=== PATIENT | female | born 1940 | race Caucasian/White ===

== ENCOUNTER → 2017-03-24 | Outpatient (CLI) | payer MEDICARE ==
--- NOTE | 2017-03-24 15:13 | MAM ---
History: Six month follow-up probably benign calcifications right breast 7:00. DATE OF SERVICE: 03/24/2017 Services provided: Full field digital diagnostic right mammography. FINDINGS: Ame true lateral and spot compression magnification views right breast are compared with 10/2016 evaluation. Vascular calcifications are appreciated with what appeared to be potentially secretory type calcifications at 7:00 adjacent to the vessel. Morphology and appearance appear stable. These are better demonstrated since the study in 2013. Glandular parenchyma has a scattered contour. No architectural distortion or dominant mass. IMPRESSION: Probably benign exam. Stable microcalcifications right breast 7:00. Recommendation: Bilateral mammography is due in October. Routine films with magnification views are recommended at that time and was communicated to the patient by the technologist. BIRAD CATEGORY: 3 PROBABLY BENIGN Electronically signed by: Bonita Beard MD 03/24/2017 3:12 PM CDT
== END | disposition home or self-care (01) ==
LOC: MAMMO 14:05
PROVIDERS: ATTEND Family Medicine
DX: R92.8 Other abnormal and inconclusive findings on diagnostic imaging of breast (principal)

== ENCOUNTER → 2017-07-14 | Outpatient (CLI) | payer MEDICARE | END | disposition home or self-care (01) | LOC: GMAL 11:02 | PROVIDERS: ATTEND Family Medicine | DX: D51.3 Other dietary vitamin B12 deficiency anemia (principal) ==

== ENCOUNTER → 2017-10-03 | Outpatient (CLI) | payer MEDICARE ==
--- NOTE | 2017-10-04 08:54 | MAM ---
EXAM DESCRIPTION: 3D Diagnostic, Bilateral CLINICAL HISTORY: 77 yearsFemaleABNORMAL SCREENING follow-up calcifications right breast.. No current complaints. Sister with breast cancer. Postmenopausal. Has taken HRT 5 or more years ago. Bilateral breast augmentation. COMPARISON: 2-D digital bilateral screening study 09/29/2016. 2-D right breast diagnostic digital mammography 10/21/2016 and 03/24/2017. Reports from each prior examination also reviewed TECHNIQUE: Bilateral digital screening. CC and MLO projection full-field, 2-D images. Bilateral Venancio implant displacement images, CC and MLO full-field projections, 3-D tomosynthesis. CAD not utilized. FINDINGS: The breast parenchymal density pattern is: Scattered areas of fibroglandular density. No skin thickening or nipple retraction bilaterally. Again noted are multiple calcifications in the anterior third of the right breast.. There are groups of microcalcifications, as it calcifications, and solitary microcalcifications. These calcifications are stable since the study in March 2017. Fewer calcifications in the anterior lateral aspect of the left breast. Bilateral subglandular silicon implants. Partial calcification of the bilateral capsules. The capsules appear intact where seen. No focal, stellate mass or density no focal asymmetry, and no suspicious microcalcifications bilaterally IMPRESSION: BI-RADS CATEGORY: 3 - PROBABLY BENIGN. Management: Short interval (6-month) follow-up right breast digital diagnostic mammography. Written communication explaining the IMPRESSION and follow-up will be mailed to the patient and referring care provider Electronically signed by: Isaac Oliva MD 10/04/2017 8:53 AM [employer]ATING [employer]IXER [employer]ENDER
== END | disposition home or self-care (01) ==
LOC: MAMMO 12:32
PROVIDERS: ATTEND Family Medicine
DX: R92.8 Other abnormal and inconclusive findings on diagnostic imaging of breast (principal)
CPT/HCPCS: G0204; G0279

== ENCOUNTER → 2017-11-16 | Outpatient (CLI) | payer MEDICARE | END | disposition home or self-care (01) | LOC: GMAJ 10:30 | PROVIDERS: ATTEND Family Medicine | DX: R53.82 Chronic fatigue, unspecified (principal); E55.9 Vitamin D deficiency, unspecified ==

== ENCOUNTER → 2018-01-25 | Outpatient (CLI) | payer MEDICARE ==
--- NOTE | 2018-01-25 10:55 | MAM ---
EXAM DESCRIPTION: 3D Diagnostic, Right: Digital Mammography CLINICAL HISTORY: 77 yearsFemaleABNORMAL MAMMOGRAM . Six-month follow-up calcifications right breast. Patient waiting for renal transplant.. COMPARISON: Bilateral 3-D tomosynthesis diagnostic mammography 10/03/2017. Diagnostic 2-D right breast mammography 03/24/2017. Diagnostic right breast 2-D digital mammography 10/21/2016. Reports from prior examinations also reviewed. TECHNIQUE: Right breast CC LM MLO projection full-field images, 3-D tomosynthesis digital mammographic technique. Also bilateral synthesized CC MLO LM full-field images. Also 2-D MLO LM and CC images without and with implant displacement. CAD utilized for 2-D images. FINDINGS: The breast parenchymal density pattern is: Scattered areas of fibroglandular density. No skin thickening or nipple retraction again noted is a large group of heterogeneous calcifications in the posterior middle third of the right breast on the implant displacement view at the 100 clock position. These are stable compared to the prior study September 2017. Also stable dating back to 2-D diagnostic digital mammographic examination October 2016. No new focal, stellate mass or density, focal asymmetry , and no suspicious microcalcifications right breast. Stable mammograms compared to prior study, taking into account differences in mammographic technique IMPRESSION: BI-RADS CATEGORY: 3 - PROBABLY BENIGN. Management: Short interval (6-month) follow-up digital diagnostic mammography of the right breast, July 2018. The technologist discussed the FINDINGS AND IMPRESSION directly with the patient. Written communication explaining the IMPRESSION and follow-up will be mailed to the patient and referring care provider Electronically signed by: Isaac Oliva MD 01/25/2018 10:53 AM CDT
== END ==
LOC: MAMMO 10:00
PROVIDERS: ATTEND Family Medicine
DX: R92.8 Other abnormal and inconclusive findings on diagnostic imaging of breast (principal)
CPT/HCPCS: 77065; G0279

== ENCOUNTER → 2018-02-06 | Outpatient (CLI) | payer MEDICARE ==
--- NOTE | 2018-02-06 08:43 | CT ---
EXAM DESCRIPTION: Pelvis CLINICAL HISTORY: 77 years Female, ASSESS ILIAC VASCULATURE COMPARISON: None. TECHNIQUE: CT pelvis without contrast FINDINGS: Numerous cysts are seen in the kidneys which appear markedly enlarged. Calcified aorta is seen with arteriosclerotic calcification of the common iliac and internal iliac arteries. Minimal calcification of external iliac arteries with dense calcification of the common femoral arteries bilaterally. Surgical clip is seen in the right groin region. Surgical clips are seen in the groin regions bilaterally. Calcified superficial femoral arteries are visualized in the proximal thighs bilaterally. Bilateral total hip arthroplasties are present with metal artifacts obscuring much of the lower pelvis. Calcified uterine fibroid is present posteriorly on the left. No uterine or ovarian enlargement. Bladder is only partly visualized due to metal artifact obscuration. Bones appear osteopenic or osteoporotic. Coronal and sagittal reformatted images confirm the findings. Three-D shaded surface display images show total hip arthroplasties bilaterally with no hardware fracture or dislocation. IMPRESSION: Partially visualized polycystic kidneys. Calcified uterine fibroid. Arteriosclerotic calcification of aorta, iliac and femoral arteries. This exam was performed according to our departmental dose-optimization program, which includes automated exposure control, adjustment of the mA and/or kV according to patient size and/or use of iterative reconstruction technique. Total DLP equals 660.65 mGycm. Electronically signed by: Ben Florence MD 02/06/2018 8:41 AM CDT
== END ==
LOC: CT 08:30
DX: N18.6 End stage renal disease (principal); D25.9 Leiomyoma of uterus, unspecified

== ENCOUNTER → 2018-06-29 | Outpatient (CLI) | payer MEDICARE ==
--- NOTE | 2018-06-29 17:02 | MRI ---
EXAM DESCRIPTION: Lumbar Spine w/o Contrast CLINICAL HISTORY: 78 years, Female, RADICULOPATHY COMPARISON: None TECHNIQUE: Multiplanar multi sequence images of the lumbar spine were obtained without gadolinium contrast. FINDINGS: Vertebral body height and alignment are well maintained. Modic type I discogenic endplate signal changes are noted at L2-3 and L3-4. The conus lies posterior to the T12-L1 disc, and the cauda equina is unremarkable. Normal kidneys are not identified, with the majority of the volume occupied by innumerable cysts. No apparent abdominal aortic aneurysm. At L1-2, there is no disc bulging or significant facet joint degeneration. At L2-3, disc desiccation is noted with concentric disc bulging and bilateral facet joint degeneration without significant central canal or neuroforaminal stenosis. At L3-4, there is disc desiccation with concentric disc bulging, bilateral facet joint degeneration and ligament flavum thickening resulting in mild central canal and moderate left-sided neuroforaminal stenosis. Disc material approaches but only questionably abuts the exiting left L3 nerve root. At L4-5, there is disc desiccation with concentric disc bulging and bilateral facet joint degeneration resulting in mild right-sided neural foraminal stenosis. Disc material approaches but does not definitely abut the descending right L5 nerve root in the lateral recess. At L5-S1, there is only mild right foraminal and right lateral bulging with bilateral facet joint degeneration all resulting in mild right-sided neuroforaminal stenosis. Disc material approaches but only questionable area abuts the exiting right L5 nerve root. IMPRESSION: Disc bulging and facet joint degeneration at L3-4, L4-5 and L5-S1 resulting in neuroforaminal stenosis, central canal stenosis and questionable nerve root abutment as detailed above. Electronically signed by: Matteo Kamara MD 06/29/2018 4:27 PM CDT
== END ==
LOC: MRI 09:00
PROVIDERS: ATTEND Family Medicine
DX: M51.16 Intervertebral disc disorders with radiculopathy, lumbar region (principal)

== ENCOUNTER → 2018-08-03 | Outpatient (CLI) | payer MEDICARE ==
--- NOTE | 2018-08-04 07:34 | MAM ---
EXAM DESCRIPTION: 3D Diagnostic, Bilateral: Digital Mammography CLINICAL HISTORY: 78 yearsFemaleABNORMAL MAMMO 6 MONTH FOLLOW UP follow-up calcifications anterior right breast. No personal history of breast cancer. Sister with breast cancer. Childbirth. 23 years postmenopausal. Has taken HRT 5 or more years ago. Bilateral breast implants. COMPARISON: Right breast digital diagnostic tomosynthesis 01/25/2018. 2-D digital screening bilateral study 09/29/2016 . TECHNIQUE: Bilateral CC LM MLO projection full-field images, digital mammographic tomosynthesis, and bilateral MLO projection. 2-D digital images, with Venancio implant displacement technique. Bilateral CC, LM, and MLO projection images without implant displacement CAD not utilized. FINDINGS: The breast parenchymal density pattern is: Heterogeneously dense breast tissue, which may obscure small masses. Extremely dense breast tissue, which lowers the sensitivity of mammography. No skin thickening, bilateral nipple retraction again seen are vascular and heterogeneous calcifications at the 300-400 clock position of the right breast, 2 to 3 cm from the nipple. These are also associated with a coarse calcification. No focal asymmetry or soft tissue mass. Bilateral retromuscular silicon implants. Capsules are irregular. Appearance of calcifications or tiny leakage of implant material on the inferior segment of the right breast implant seen only on the MLO image. Stable compared to prior studies. No new focal, stellate mass or density, focal asymmetry , and no suspicious microcalcifications bilaterally IMPRESSION: Right breast calcifications are stable since September 2016 and are benign. ASSESSMENT: BIRAD CATEGORY: 2 BENIGN FINDINGS. RECOMMENDATIONS: FOLLOW UP: Return to routine digital bilateral screening, one year interval from July 2018. Written communication explaining the IMPRESSION and follow-up, will be mailed to the patient and referring health care provider. According to the [employer], yearly mammograms are recommended starting at age 40 and continuing as long as a woman is in good health. Any breast change noted on a breast self-exam should be reported promptly to the patient's healthcare provider. Breast MRI is recommended for women with an approximately 20-25% or greater lifetime risk of breast cancer, including women with a strong family history of breast or ovarian cancer and women who have been treated for Hodgkin's disease. A negative mammographic report should not delay tissue diagnosis in patients with significant clinical history or physical findings. Extremely dense breast tissue limits the sensitivity of digital mammography. Electronically signed by: Isaac Oliva MD 08/04/2018 7:32 AM CDT
== END ==
LOC: MAMMO 10:00
PROVIDERS: ATTEND Family Medicine
DX: R92.8 Other abnormal and inconclusive findings on diagnostic imaging of breast (principal); R92.1 Mammographic calcification found on diagnostic imaging of breast
CPT/HCPCS: 77066; G0279

== ENCOUNTER → 2018-08-09 | Outpatient (CLI) | payer MEDICARE ==
--- NOTE | 2018-08-09 14:34 | MRI ---
EXAM DESCRIPTION: MRA Head and/or Neck CLINICAL HISTORY: 78 years Female, POLYCYSTIC KIDNEY COMPARISON: None. TECHNIQUE: 3-D [id number] thin section acquisition of the brain with MIP reformatted images. FINDINGS: The vertebral arteries are codominant with a widely patent basilar artery that terminates as posterior cerebral arteries on each side. There is no evidence of basilar tip aneurysm and no evidence of occlusion. Image quality is moderately limited by motion artifact. Petrous portion of each internal carotid artery and each internal carotid bifurcation is normally patent. No evidence of anterior or posterior communicating artery aneurysm is noted. Each middle cerebral trifurcation is normal in appearance without aneurysm or occlusion evident. IMPRESSION: Normal MRA of the brain without contrast enhancement. No evidence of occlusion or stenosis or focal aneurysm identified. Electronically signed by: Parmjit Randolph MD 08/09/2018 2:32 PM CDT
== END ==
LOC: MRI 09:00
DX: Q61.3 Polycystic kidney, unspecified (principal); Z76.82 Awaiting organ transplant status

== ENCOUNTER → 2019-07-20 | Outpatient (CLI) | payer MEDICARE ==
--- NOTE | 2019-07-22 14:23 | MRI ---
EXAM DESCRIPTION: Lumbar Spine w/o Contrast : Magnetic Resonance Imaging. CLINICAL HISTORY: Other intervertebral disc degeneration, lumbar region COMPARISON: MR scan lumbar spine without contrast 06/29/2018. Thoracic spine MRI on this visit. Radiographs lumbar spine July 03, 2019. TECHNIQUE: Multiplanar, multiple standard sequences, non contrast MRI, lumbar spine. FINDINGS: L5-S1: The disc is well visualized on axial T2 series 501, image 3. Disc desiccation with disc space preserved. Tiny posterior midline bulge. AP canal diameter 12 mm. Disc bulge into the bilateral foramina more on the right with moderate narrowing and minimal narrowing left. No change from the prior study. Irregularity of the superior L5 endplate with slight depression, hypointense T1 signal and hyperintense inversion recovery signal. Trace 1 mm retropulsion. No marrow edema in the pedicles. New since the prior study. L4-L5: disc posterior broad-based 4 mm bulge abutting the thecal sac and the descending L5 nerves. Hypertrophic right facet arthrosis and ligament thickening impressing on the thecal sac. AP canal diameter 8 mm. Bilateral subarticular recesses are patent. Bilateral foramina are patent. Trace anterolisthesis stable since the prior study. L3-L4: Moderate disc desiccation and disc space loss in the midline into the left of midline with minimal narrowing to the right of midline. Anterior disc bulge with endplate ridging. Moderate bilateral hypertrophic facet arthrosis and ligament thickening with AP canal diameter 13 mm and minimal narrowing of the left subarticular recess. Left posterior lateral disc osteophyte complex encroaching on the foramen and canal abutting the exiting left L3 nerve with mild foraminal stenosis. Stable since the prior study. L2-L3: Disc desiccation with moderate endplate changes in the midline into the right of midline. Anterior disc osteophyte bulge. 3 mm grade 1 retrolisthesis. Hypertrophic left facet arthrosis and thickening of the ligament. Mild canal narrowing. Hypertrophic left side disc osteophyte complex encroaching on the foramen with moderate narrowing. Mild right foraminal narrowing. Canal is patent. No change from the prior study. L1-L2: Disc desiccation with disc space preserved. No disc bulging with minimal ligament thickening. Canal and foramina are patent. Stable since the prior study. T12-L1: Disc normal signal and no bulging. Disc space preserved. Canal and foramina are patent. Conus terminates at this level. No change from the prior study. Diffuse hypointense T1 signal and hyperintense T2 signal in the superior L5 endplate not involving the T12 vertebral body mostly superior. Retropulsion of the endplate 3 mm. Not touching the cord. Marrow edema signal extends into the base of the bilateral pedicles, but not more posterior. Anterior T12 height 13.9 mm and anterior T11 height 19.8 mm. Mild canal narrowing. New since the prior study. Unable to evaluate the bilateral T11-T12 foramina. Please see report MRI scan thoracic spine today. L2-L5 with dextro scoliosis stable. Paravertebral soft tissues numerous bilateral renal cysts with no visible normal renal parenchyma bilaterally. Minimal paravertebral soft tissue edema abutting the L5 endplate and the anterior T11-T12 disc space.. Distal cord normal signal and caliber. Otherwise normal marrow signal in the remaining vertebral bodies and the posterior elements. Vertebral bodies are not compressed at any level. IMPRESSION: 1. Acute versus subacute compression injury superior L5 endplate with trace anterolisthesis at L4-L5 and trace retropulsion superior L5 endplate. Less than 25% loss of height. Not involving the bilateral pedicles. 2. Tiny posterior midline L5-S1 disc bulge with moderate canal narrowing and moderate right foraminal narrowing stable since the prior study. 3. Posterior broad-based L4-L5 disc bulge with hypertrophic posterior elements causing mild to moderate canal stenosis. Stable since the prior study. 4. Left side moderate spondylosis L3-L4 encroaching on the left foramen and abutting the exiting left L3 nerve with foraminal stenosis. Stable since the prior study. 5. Moderate spondylosis L2-L3 mild hypertrophic on the left encroaching on the foramen with moderate narrowing. Posterior disc bulge. Grade 1 retrolisthesis. No change from the prior study. 6. Diffuse compression injury and deformity of the superior T12 endplate abutting the T11-T12 disc also involving the base of the bilateral pedicles. Decrease in anterior height of the vertebral body approximately 35%. 3 mm retropulsion posterior endplate. Moderate canal narrowing. 7. Bilateral polycystic kidneys seen on prior MRI scans, CT scans, and ultrasound. Electronically signed by: Isaac Oliva MD 07/22/2019 2:22 PM CDT
--- NOTE | 2019-07-22 14:43 | MRI ---
EXAM DESCRIPTION: Thoracic Spine w/o Contrast: Magnetic Resonance Imaging. CLINICAL HISTORY: Pain in thoracic spine. Patient fell 2 weeks ago with pain in the mid back, radiating finger chest and pain in the right hip. COMPARISON: MRI scan lumbar spine on this visit. CT pelvis of February 2018 and renal ultrasound November 2009. TECHNIQUE: Multiplanar, multiple standard sequences, non contrast MRI, thoracic spine. FINDINGS: Diffuse hypointense T1 signal in the T12 vertebral body predominantly around the superior endplate with similar region showing hyperintense inversion recovery signal. This marrow edema extends into the bases of the bilateral T12 pedicles. 3 mm retropulsion of the superior endplate. Not touching the cord. Normal signal in the cord. Anterior height at T12 vertebral body 14 mm and anterior height at T11 vertebral body 20 mm. Mild narrowing of the bilateral pedicles more right than left with no stenosis. Band of hypointense T1 signal and hyperintense STIR signal in the superior T3 endplate not involving the pedicles. Minimal depression of the endplate and widening of the T2-T3 disc space. No retropulsion. Normal signal in the disc with no significant bulging. Canal and bilateral foramina are patent. Minimal desiccation of the T9-T10 disc, and minimal disc space loss. No disc bulging. Canal and foramina are patent and facets are unremarkable. Similar appearance and findings at the T6-T7 disc space including Canal and foramina. Remaining discs with normal signal. Disc spaces are preserved. Canal and foramina are patent. No scoliosis. Facet joints are unremarkable. Conus terminates T12-L1. Cord with normal signal, no compression. Paravertebral soft tissues multiple bilateral renal cysts with no normal renal tissue visualized. Normal marrow signal in the remaining vertebral bodies and the posterior elements. IMPRESSION: 1. Compression injury superior T12 endplate approximately 30% depression and 3 mm retropulsion. No cord impingement. No canal or foraminal stenosis. Minimal edema in the bilateral periventricular bases. No injuries of the remaining posterior elements. 2. Minimal compression injury superior T3 endplate with no retropulsion, no canal or foraminal stenosis at T2-T3. 3. Disc desiccation T9-T10 disc and T6-T7 disc with no disc space loss. No canal or foraminal stenosis. 4. Bilateral polycystic kidneys with no normal renal parenchyma seen on limited views. Cyst appears much more numerous and larger compared to the prior renal ultrasound in 2009. Excluding hydronephrosis would be difficult. Consider bilateral ultrasound evaluation if clinically indicated. Electronically signed by: Isaac Oliva MD 07/22/2019 2:42 PM CDT
== END ==
LOC: MRI 10:50
PROVIDERS: ATTEND Family Medicine
DX: M51.34 Other intervertebral disc degeneration, thoracic region (principal); M51.36 Other intervertebral disc degeneration, lumbar region; M51.84 Other intervertebral disc disorders, thoracic region; M51.86 Other intervertebral disc disorders, lumbar region; M51.87 Other intervertebral disc disorders, lumbosacral region; M43.16 Spondylolisthesis, lumbar region; M47.896 Other spondylosis, lumbar region; Q61.3 Polycystic kidney, unspecified

== ENCOUNTER → 2019-08-10 | Outpatient (CLI) | payer MEDICARE ==
--- NOTE | 2019-08-10 15:53 | MRI ---
EXAM DESCRIPTION: Lumbar Spine w/o Contrast : Magnetic Resonance Imaging. CLINICAL HISTORY: AGE RELATED OSTEOPOROSIS WITH CURRENT PATHOLOGICAL FX COMPARISON: MRI lumbar spine 07/20/2019. TECHNIQUE: Multiplanar, multiple standard sequences, non contrast MRI, lumbar spine. FINDINGS: L5-S1: The disc is well visualized on axial T2 series 501, image 3. Since the prior study, vertebroplasty is been performed at L5. Customary location of the cement. Further depression of the superior L5 endplate which was edematous on the prior study. Minimal edema again noted above the cement. Minimal edema in the pedicles and below the cement which may be related to the injection. Appearance of the disc canal and foramina bilaterally at L5-S1 is unchanged with no stenosis. L4-L5 disc desiccation and posterior bulge with canal mild stenosis secondary to the disc and posterior elements. Foraminal narrowing more right than left but no stenosis, unchanged since the prior study. Spondylosis L3-4 and L2-3 with canal and foraminal narrowing is stable as well as L2-L5 dextroscoliosis and minimal anterolisthesis at L3-L4. No compression or abnormal marrow edema. Since the prior study, marrow edema is now visualized in the L1 vertebral body but not the pedicles, and there is also elevation of the inferior endplate and depression of the superior endplate with these findings consistent with recent compression fracture since the prior study. Distance between the central endplates is 1.1 cm on the current study at least a 50% decrease since the prior study (2.3 cm). No retropulsion of the endplates. L1-L2 disc desiccation but no significant bulging with canal and foramina patent. T12-L1 disc desiccation and tiny bulging but no canal or foraminal stenosis. Conus terminates at T12-L1. Vertebroplasty is also been performed at T12 since the prior study. There is suggestion that some of the cement is within the anterior left lateral quadrant of the canal medial to the anterior left pedicle and abutting the left T12 nerve, in the extradural space. Marrow edema visible in both T12 pedicles. Stable retropulsion of the superior T12 endplate. T11-12 disc is not bulging with no canal or foraminal stenosis. Paravertebral soft tissues again show bilateral polycystic kidneys. Paraspinal muscle atrophy.. Distal cord normal signal and caliber. Otherwise normal marrow signal in the remaining vertebral bodies and the posterior elements. IMPRESSION: 1. Vertebroplasty performed at L5 to prior study in customary location. Slight progression of superior L5 endplate depression since the prior study. No canal or foraminal stenosis at L5-S1. 2. Stable mild canal stenosis centrally at L4-L5. Stable spondylosis L3-4 and L2-3, and anterolisthesis at L3-4. L2-L5 dextroscoliosis is unchanged. No canal or foraminal stenosis at these levels. 3. New compression injury L1 involving both endplates but not the pedicles. 50% loss of central height the prior study. At the discs above and below the vertebra, no canal or foraminal stenosis.. 4. Vertebroplasty at T12 level since the prior study. Likely migration of the cement into the anterior left lateral quadrant of the canal abutting the anterior medial left pedicle and the descending left T12 nerve root. Marrow edema in the vertebral body could be residual from the injury or the procedure. No canal or foraminal stenosis at T12-L1. Electronically signed by: Isaac Oliva MD 08/10/2019 3:51 PM CDT
== END ==
LOC: MRI 11:00
PROVIDERS: ATTEND Neurological Surgery
DX: M80.08XG Age-related osteoporosis with current pathological fracture, vertebra(e), subsequent encounter for fracture with delayed healing (principal); M48.061 Spinal stenosis, lumbar region without neurogenic claudication; M43.16 Spondylolisthesis, lumbar region; M47.896 Other spondylosis, lumbar region; S34.101A Unspecified injury to L1 level of lumbar spinal cord, initial encounter; Z98.890 Other specified postprocedural states

== ENCOUNTER → 2019-08-28 | Outpatient (CLI) | payer MEDICARE ==
--- NOTE | 2019-08-28 16:50 | MRI ---
Study: MRI of the Lumbar Spine. Indication: OSTEOPOROSIS Technique: Multiplanar, multi sequence MRI of the lumbar spine was obtained without intravenous contrast. Comparison: August 10, 2019. Findings: Interval vertebral body augmentation has been performed at L1. Prior vertebral body augmentation has been performed at T12 at L5. Marrow edema within each of these vertebral bodies noted as on the prior. A new acute L2 superior endplate fracture noted with 25% height loss and surrounding marrow edema. No significant retropulsion. A more subtle acute L4 superior endplate fracture noted along the right lateral margin of the endplate with mild marrow edema and minimal depression up to 5%. Multilevel degenerative change lumbar spine redemonstrated and appear stable as fully detailed the previous report. Extensive polycystic kidney disease noted. Impression: New acute L2 and L4 superior endplate fractures. Electronically signed by: Brandon Meza MD 08/28/2019 4:48 PM CDT
--- NOTE | 2019-08-28 16:54 | MRI ---
Study: MRI of the Thoracic Spine. Indication: OSTEOPOROSIS Technique: Multiplanar, multi sequence MRI of the thoracic spine was obtained without intravenous contrast. Comparison: July 20, 2019. Findings: Acute T8 superior endplate fracture noted with 25% height loss and marrow edema paralleling the superior endplate. No retropulsion. A subacute T6 superior endplate fracture noted with only minimal marrow edema throughout the superior endplate. 30% height loss at this level. No retropulsion. Previously noted T3 fracture has undergone interval vertebral body augmentation. There is significant cement along the right anterolateral and left anterolateral margins of the vertebral body. Interval vertebral body augmentation at T12 and L1 noted. Spinal cord normal in caliber and signal. Stable thoracic disc disease. Polycystic kidney disease noted. Impression: Acute T8 superior endplate fracture. Subacute T6 superior endplate fracture. Interval vertebral body augmentation of T3, T12, L1. Electronically signed by: Brandon Meza MD 08/28/2019 4:52 PM CDT
== END ==
LOC: MRI 09:30
PROVIDERS: ATTEND Neurological Surgery
DX: M80.08XG Age-related osteoporosis with current pathological fracture, vertebra(e), subsequent encounter for fracture with delayed healing (principal)

== ENCOUNTER → 2019-09-12 | Outpatient (CLI) | payer MEDICARE | LOC: GMAL 11:00 | PROVIDERS: ATTEND Family Medicine | DX: D51.3 Other dietary vitamin B12 deficiency anemia (principal); I10 Essential (primary) hypertension; R53.82 Chronic fatigue, unspecified; E55.9 Vitamin D deficiency, unspecified; E78.49 Other hyperlipidemia ==

== ENCOUNTER → 2019-11-29 | Outpatient (CLI) | payer MEDICARE ==
--- NOTE | 2019-12-03 16:02 | MAM ---
Exam DESCRIPTION: Digital Mammography. CLINICAL HISTORY: 79 years Female SCREEN . No complaints and no personal history of breast cancer. Sister with breast cancer age 56. Menarche age 16. Childbirth age 25. Menopause age 54. Taken HRT 5 or more years ago. Bilateral breast augmentation. Lifetime risk of developing breast cancer (Tyrer-Cuzick model)(%): 5.2. COMPARISON: Bilateral digital diagnostic breast tomosynthesis July 2018 and January 2018. 2-D digital screening bilateral mammography September 2017.. TECHNIQUE: Bilateral CC and MLO projection full-field images, with Venancio Implant Displacement digital tomosynthesis mammographic technique. Bilateral 2-D digital full-field images, MLO and CC projections, non-displaced. Bilateral digital 2-D full-field MLO images. Implant displaced. CAD available for 2-D images. Technically difficult study due to positioning of the implants and patient's physical status. FINDINGS: The breast parenchymal density pattern is: Heterogeneously dense breast tissue, which may obscure small masses. No skin thickening or nipple retraction bilaterally. Bilateral calcifications. More Dense tissues are retroareolar bilaterally.. Bilateral secretory calcifications. Bilateral silicone implants are subglandular; irregular in shape with multiple calcifications. Dense material on the superior aspect of the left implant most likely leaking silicone material but stable since the prior study. No new focal, stellate mass or density, focal asymmetry , and no suspicious microcalcifications bilaterally. Stable mammograms compared to prior study. IMPRESSION: Benign exam. BIRAD CATEGORY: 2 BENIGN FINDINGS. RECOMMENDATIONS: FOLLOW UP: Routine digital bilateral mammographic screening, one year interval from November 2019. Written communication explaining the IMPRESSION and follow-up, will be mailed to the patient and referring health care provider. According to the [employer], yearly mammograms are recommended starting at age 40 and continuing as long as a woman is in good health. Any breast change noted on a breast self-exam should be reported promptly to the patient's healthcare provider. Breast MRI is recommended for women with an approximately 20-25% or greater lifetime risk of breast cancer, including women with a strong family history of breast or ovarian cancer and women who have been treated for Hodgkin's disease. A negative mammographic report should not delay tissue diagnosis in patients with significant clinical history or physical findings. Extremely dense breast tissue limits the sensitivity of digital mammography. Electronically signed by: Isaac Oliva MD 12/03/2019 4:00 PM MUSEUM SERVICE SCHEDULER
== END ==
LOC: MAMMO 09:30
PROVIDERS: ATTEND Family Medicine
DX: Z12.31 Encounter for screening mammogram for malignant neoplasm of breast (principal)

== ENCOUNTER → 2020-02-14 | Outpatient (CLI) | payer MEDICARE | LOC: GMAL 11:52 | PROVIDERS: ATTEND Family Medicine | DX: N18.4 Chronic kidney disease, stage 4 (severe) (principal); Z94.0 Kidney transplant status ==

== ENCOUNTER 2020-03-21 11:49 | Emergency (ER) | payer MEDICARE ==
--- NOTE | 2020-03-21 12:04 | ED.PDOC ---
History of Present Illness - General Time Seen by Provider: 03/21/20 11:59 Additional Information: This is a 79-year-old female, presents to the ER because of a 10-day history of right calf tenderness, patient has a history of kidney transplant because of polycystic kidney disease history of back pain which she receives injections, has not had any recent travels or recent surgeries. Patient, primary care physician they told her to wait it out, but the pain is gotten worse her doctor told her to come in to get a ultrasound Patient is a social drinker but smoker and denies any drug use Patient stated that her legs are always very sensitive, and also that her right leg is always swollen and always bigger than the left and this is not new - History of Present Illness Occurred: other - 10 days Pain - Lower Extremity: mild: Right Leg Method of Injury: other - No Trauma Improving Factors: nothing Worsening Factors: nothing Allergies/Adverse Reactions: Allergies NSAIDs Adverse Reaction (Verified 01/27/15 10:30) Home Medications: Ambulatory Orders Atenolol [Tenormin] 50 mg PO BID 01/27/15 Lisinopril 20 mg PO DAILY 01/27/15 Simvastatin [Zocor] 20 mg PO DAILY 01/27/15 amLODIPine BESYLATE [Norvasc] 5 mg PO DAILY 01/27/15 Tramadol HCl 50 mg PO Q6HR #20 tab 03/21/20 Review of Systems - Review of Systems Constitutional: States: no symptoms reported EENTM: States: no symptoms reported Respiratory: States: no symptoms reported Cardiology: States: no symptoms reported Gastrointestinal/Abdominal: States: no symptoms reported Genitourinary: States: no symptoms reported Musculoskeletal: States: other - Calf tenderness Skin: States: no symptoms reported Neurological: States: no symptoms reported Endocrine: States: no symptoms reported Hematologic/Lymphatic: States: no symptoms reported Past Medical History (General) - Patient Medical History Hx Congestive Heart Failure: No Hx Diabetes: No Family Medical History - Family History Mother Family History: Unknown Living Status: Unknown Physical Exam - Physical Exam General Appearance: Alert, Well Developed, Well Groomed, Well Hydrated, Well Nourished Eyes, Ears, Nose, Throat: PERRL/EOMI, TMs normal Neck: non-tender, full range of motion, supple, normal inspection Cardiovascular/Respiratory: regular rate, rhythm, no M/R/G, normal peripheral pulses, no JVD, normal breath sounds, no respiratory distress Gastrointestinal/Abdominal: non-tender, no organomegaly, no hernia Back: normal inspection, no CVA tenderness, no vertebral tenderness Thigh/Hip: normal inspection, non-tender, no evidence of injury, normal ROM Leg: other - calf tenderness Knee: normal inspection, non-tender, no evidence of injury, normal ROM Ankle: normal inspection, non-tender, no evidence of injury, normal ROM Foot: normal inspection, non-tender, no evidence of injury, normal ROM Neuro/Tendon: normal sensation, normal motor functions, normal tendon functions Mental Status: alert, oriented x 3 Skin: normal color, warm/dry Progress - Progress Progress: 03/21/20 13:23 Patient presenting with right calf tenderness for the past 10 days, patient has no risk factors for DVT, no recent surgeries no trauma, no history of pulmonary embolism no history of previous DVT. Patient was sent here from her primary care physician/we will get an ultrasound to rule out deep venous thrombosis. Ultrasound was performed and there was no evidence of blood clots, will discharge patient with tramadol for pain and I will have her follow-up with her primary care physician for evaluation of leg pain, physical exam the leg is warm to touch, with good pulses good capillary refill there is no evidence of peripheral vascular disease Departure - Departure Clinical Impression: Leg pain Qualifiers: Laterality: right Qualified Code(s): M79.604 - Pain in right leg Disposition: Discharge to Home or Self Care Condition: Fair Instructions: Peripheral Vascular (Arterial) Disease (DC), Peripheral Neuropathy Diet: resume usual diet Activity: increase activity as tolerated Referrals: Aakash Mattson III, MD [Primary Care Provider] - 1-2 Weeks Prescriptions: Tramadol HCl 50 mg PO Q6HR #20 tab Home Medications: Ambulatory Orders Atenolol [Tenormin] 50 mg PO BID 01/27/15 Lisinopril 20 mg PO DAILY 01/27/15 Simvastatin [Zocor] 20 mg PO DAILY 01/27/15 amLODIPine BESYLATE [Norvasc] 5 mg PO DAILY 01/27/15 Tramadol HCl 50 mg PO Q6HR #20 tab 03/21/20
--- NOTE | 2020-03-21 13:24 | US ---
Procedure: US LOWER EXTREMITY VEINS LIMITED/UNILATERAL/FOLLOW UP Exam Date: 03/21/2020 Ordering Provider: Israel Logan Clinical Indication: Rule out DVT, lower extremity pain Comparison: None Real time ultrasound was utilized for evaluation of the deep veins of the Right lower extremity. Color Doppler and pulse Doppler analysis was performed, including B-mode/grayscale imaging, Doppler spectral analysis and color flow analysis. Real time visualization of the right lower extremity deep veins was accomplished. Elevator Repairer Apprentice images recorded. The deep veins demonstrated no abnormal intraluminal signal. The pulse Doppler and color Doppler flow patterns demonstrated normal venous flow with respiratory variation. There was increased flow with distal augmentation maneuvers. No suspicious mass or fluid collection in the right posterior calf at the site of patient's pain. IMPRESSION: No evidence of DVT in the right lower extremity. Electronically signed by: Chato Bonds MD 03/21/2020 1:22 PM CDT
[2020-03-21 13:32] VITALS: BP 167/68; TEMP 97.2; O2SAT 97
== END 2020-03-21 13:30 | disposition home or self-care (01) ==
LOC: ER 11:49
DX: M79.661 Pain in right lower leg (principal); Z94.0 Kidney transplant status

== ENCOUNTER → 2020-04-22 | Outpatient (CLI) | payer MEDICARE | LOC: GMAL 10:56 | PROVIDERS: ATTEND Family Medicine | DX: N18.4 Chronic kidney disease, stage 4 (severe) (principal) ==